=== PATIENT | female | born 1995 | race Two or more races ===

== ENCOUNTER 2016-03-25 21:54 | Emergency (ER) | payer SELFPAY ==
[~2016-03-25] VITALS: Ht 157.5 cm; Wt 45.4 kg
[2016-03-25 22:34] LABS: BILIRUBIN,URINE NEGATIVE (NEG); GLUCOSE,URINE 100 mg/dL (NEG); NITRITE,URINE NEGATIVE (NEG); PROTEIN,URINE NEGATIVE (NEG-TRACE); UROBILINOGEN,URINE 0.2 mg/dL (0.2 mg/dL)
[2016-03-25 22:42] LABS: BACTERIA,URINE MODERATE /HPF (0-FEW); RBC,URINE TNTC /HPF (0-2); SQUAMOUS EPITHELIAL CELL,UR MANY /LPF
[2016-03-25 23:12] LABS: BASO % 0 % (0-3); EOS % 0 % (0-3); HEMATOCRIT 36.4 % (36.0-47.0); HEMOGLOBIN 12.2 g/dL (12.0-15.5); LYMPH # 2.1 x10^3/uL (1.0-4.8); LYMPH % 10 % (24-48); MEAN CORPUSCULAR HEMOGLOBIN 32 pg (25-35); MEAN CORPUSCULAR HGB CONC 34 g/dL (31-37); MEAN CORPUSCULAR VOLUME 96 fL (79-100); MONO % 6 % (0-9); NEUT % 84 % (31-73); PLATELET COUNT 354 x10^3/uL (140-400); RED CELL DISTRIBUTION WIDTH 12.4 % (11.5-14.5); WHITE BLOOD COUNT 21.2 x10^3/uL (4.0-11.0)
[2016-03-25 23:36] LABS: PLT ESTIMATE ADEQUATE (ADEQUATE); TOXIC GRANULATION SLIGHT
--- NOTE | 2016-03-26 00:10 | PHYS DOC ---
Past Medical History Past Medical History: GERD Past Surgical History: No Surgical History Alcohol Use: None Drug Use: None Adult General Chief Complaint Chief Complaint: ABDOMINAL PAIN HPI HPI Patient is a 20 year old female who presents with 2 days of vaginal bleeding and lower abdominal cramping. She has used 3 pads today. She notes bilateral "ovary pain" and bilateral low back pain. She is taking over-the- counter pain medicine without complete relief. She denies dysuria or hematuria. She denies nausea or vomiting, fever or chills, diarrhea, constipation. Her last menstrual cycle was at the end of January. Review of Systems Review of Systems Constitutional: Denies fever or chills [] Eyes: Denies change in visual acuity, redness, or eye pain [] HENT: Denies nasal congestion or sore throat [] Respiratory: Denies cough or shortness of breath [] Cardiovascular: No additional information not addressed in HPI [] GI: Denies nausea, vomiting, bloody stools or diarrhea [] : Denies dysuria or hematuria [] Musculoskeletal: Denies back pain or joint pain [] Integument: Denies rash or skin lesions [] Neurologic: Denies headache, focal weakness or sensory changes [] Endocrine: Denies polyuria or polydipsia [] Allergies Allergies Allergies Coded Allergies Type Severity Reaction Last Updated Verified No Known Drug Allergies 03/25/16 No Physical Exam Physical Exam Constitutional: Well developed, well nourished, no acute distress, non-toxic appearance. [] HENT: Normocephalic, atraumatic, bilateral external ears normal, oropharynx moist, nose normal. [] Eyes: PERRLA, EOMI. [] Neck: Normal range of motion, supple. [] Cardiovascular:Heart rate regular rhythm [] Lungs & Thorax: Bilateral breath sounds clear to auscultation [] Abdomen: Bowel sounds normal, soft, no tenderness. [] Skin: Warm, dry, no erythema, no rash. [] Back: No tenderness, no CVA tenderness. [] Extremities: ROM intact, no edema. [] Neurologic: Alert and oriented X 3, normal motor function, normal sensory function, no focal deficits noted. [] Psychologic: Affect normal, judgement normal, mood normal. [] Current Patient Data Vital Signs Vital Signs Date Time Temp Pulse Resp B/P Pulse Ox O2 Delivery O2 Flow Rate FiO2 2/8/17 01:15 90 20 108/61 99 Room Air 03/25/16 22:31 98.1 98.1 Lab Values Laboratory Tests Test 03/25/16 20:28 03/25/16 22:10 White Blood Count 21.2x10^3/uL (4.0-11.0) H Red Blood Count 3.80x10^6/uL (3.50-5.40) Hemoglobin 12.2g/dL (12.0-15.5) Hematocrit 36.4% (36.0-47.0) Mean Corpuscular Volume 96fL (79-100) Mean Corpuscular Hemoglobin 32pg (25-35) Mean Corpuscular Hemoglobin Concent 34g/dL (31-37) Red Cell Distribution Width 12.4% (11.5-14.5) Platelet Count 354x10^3/uL (140-400) Neutrophils (%) (Auto) 84% (31-73) H Lymphocytes (%) (Auto) 10% (24-48) L Monocytes (%) (Auto) 6% (0-9) Eosinophils (%) (Auto) 0% (0-3) Basophils (%) (Auto) 0% (0-3) Neutrophils # (Auto) 17.7x10^3uL (1.8-7.7) H Lymphocytes # (Auto) 2.1x10^3/uL (1.0-4.8) Monocytes # (Auto) 1.3x10^3/uL (0.0-1.1) H Eosinophils # (Auto) 0.0x10^3/uL (0.0-0.7) Basophils # (Auto) 0.0x10^3/uL (0.0-0.2) Segmented Neutrophils % 84% (35-66) H Band Neutrophils % 2% (0-9) Lymphocytes % 7% (24-48) L Monocytes % 7% (0-10) Toxic Granulation Slight Platelet Estimate Adequate (ADEQUATE) Maternal Serum HCG Beta Subunit 03969qYW/mL (0-6) H Urine Collection Type Unknown Urine Color Shanda Urine Clarity Clear Urine pH 6.0 Urine Specific [place] 1.020 Urine Protein Negativemg/dL (NEG-TRACE) Urine Glucose (UA) 100mg/dL (NEG) Urine Ketones (Stick) Negativemg/dL (NEG) Urine Blood Large (NEG) Urine Nitrite Negative (NEG) Urine Bilirubin Negative (NEG) Urine Urobilinogen Dipstick 0.2mg/dL (0.2 mg/dL) Urine Leukocyte Esterase Moderate (NEG) Urine RBC Tntc/HPF (0-2) Urine WBC 11-20/HPF (0-4) Urine Squamous Epithelial Cells Many/LPF Urine Bacteria Moderate/HPF (0-FEW) Urine Mucus Marked/LPF Laboratory Tests 03/25/16 20:28 Radiology/Procedures Radiology/Procedures OB ultrasound IMPRESSION No intrauterine evident. Heterogeneous echogenicity and expansion of the lower uterine endometrial canal and mild complex fluid within the endocervical canal, likely representing hematoma related to recent spontaneous . No hypervascular components within the endometrium to suggest retained products of conception. 1.9 centimeter left ovarian peripherally hypervascular solid appearing lesion most likely a corpus luteum. A para ovarian or intra-ovarian ectopic is a less likely consideration. Consider follow-up with quantitative HCG and sonography in 1 week. Electronically signed by: Denton Landaverde MD (Mar 26, 2016 01:40:36) Course & Med Decision Making Course & Med Decision Making Pertinent Labs and Imaging studies reviewed. (See chart for details) Workup concerning for spontaneous . Urine is likely contaminated from vaginal bleeding. Encouraged her to follow-up with OB clinic within one week to ensure resolution of symptoms and trend of quantitative hCG. Return precautions given. She understands and agrees with plan. Entire encounter was performed using [employer] phone Faroese speaking translator and interpreter. Dragon Disclaimer Dragon Disclaimer This electronic medical record was generated, in whole or in part, using a voice recognition dictation system. Departure Departure Impression: Primary Impression: Spontaneous Disposition: 01 HOME, SELF-CARE Condition: STABLE Referrals: DENITA BECK MD Patient Instructions: Miscarriage, [id number] Additional Instructions: Take Tylenol or ibuprofen as needed for pain. Follow-up with obstetrics clinic within one week. Return for any concerns. Marlee RIVERS MD Mar 26, 2016 00:10
[2016-03-26 01:15] VITALS: BP 108/61
--- NOTE | 2016-03-26 01:42 | RAD ---
PROCEDURE Obstetric ultrasound less than 14 weeks HISTORY female with vaginal bleeding, quantitative HCG 35483 TECHNIQUE Transabdominal and transvaginal transducers with grayscale and duplex Doppler sonography COMPARISON No prior FINDINGS Transabdominal imaging demonstrates anteverted uterus measuring 9.0 x 4.5 centimeters longitudinal. No intrauterine gestational sac. Ovaries not visualized transabdominal. Transvaginal imaging demonstrates mild heterogeneous fluid within the endocervical canal without vascularity anteverted uterus no intrauterine gestational sac. Lower uterine endometrium is thickened measuring 20 millimeters with heterogeneous echogenicity, no hypervascular regions evident. Right ovary measures 2.1 x 2.7 x 2.2 centimeters, left ovary measures 1.6 x 3.4 x 1.7 centimeters. There is a left intra-ovarian 1.9 centimeter mildly hypoechoic peripherally hypervascular lesion which appears to be within the ovary not outside of the ovary. Bilateral subcentimeter ovarian follicles. There is intact bilateral ovarian blood flow. Thin slip of simple pelvic fluid at the cul-de-sac. IMPRESSION No intrauterine evident. Heterogeneous echogenicity and expansion of the lower uterine endometrial canal and mild complex fluid within the endocervical canal, likely representing hematoma related to recent spontaneous . No hypervascular components within the endometrium to suggest retained products of conception. 1.9 centimeter left ovarian peripherally hypervascular solid appearing lesion most likely a corpus luteum. A para ovarian or intra-ovarian ectopic is a less likely consideration. Consider follow-up with quantitative HCG and sonography in 1 week. Electronically signed by: Denton Landaverde MD (Mar 26, 2016 01:40:36)
--- NOTE | 2016-03-28 14:17 | VNOTE ---
CALL BACK NOTE CALL BACK Microbiology 03/25/16 Urine Culture - Final, Complete 03/25/16 Urine Culture Result 1 (ALFRED) - Final, Complete 03/25/16 Antimicrobic Susceptibility - Final, Complete Attempted contact patient regards to urine culture being positive for Escherichia coli. Spoke with percent on the phone who was unable to provide me with information as to whether the patient was available or not. Patient did not speak [place]. There was no other person in the home as poking which. Certified letter will be sent to the patient regards to culture results. ROBBIE ESCOBAR NP Mar 28, 2016 14:17
== END 2016-03-26 01:42 | disposition home or self-care (01) ==
LOC: ER 21:54
DX: O03.9 Complete or unspecified spontaneous abortion without complication (principal); K21.9 Gastro-esophageal reflux disease without esophagitis
CPT/HCPCS: 36415; 76801; 81001; 81025; 84702; 85007; 85027; 86900; 86901; 87086; 99285-25